=== PATIENT | female | born 1970 | race Caucasian/White ===

== ENCOUNTER → 2024-03-27 15:20 | Outpatient (REF) | payer OTHER, SELFPAY | LOC: HWWDC 15:20 | PROVIDERS: ATTENDING PHYSICIAN Obstetrics & Gynecology; FAMILY PHYSICIAN Family Medicine | DX: Z12.31 Encounter for screening mammogram for malignant neoplasm of breast (principal) | CPT/HCPCS: 77063; 77067 ==

== ENCOUNTER → 2024-05-29 07:12 | Outpatient (REF) | payer OTHER, SELFPAY | LOC: HWRCS 07:12 | PROVIDERS: ATTENDING PHYSICIAN Family Medicine | DX: L93.2 Other local lupus erythematosus (principal); E80.4 Gilbert syndrome; R07.9 Chest pain, unspecified; R53.83 Other fatigue | CPT/HCPCS: 93306 ==

== ENCOUNTER → 2024-06-04 07:20 | Outpatient (REF) | payer OTHER, SELFPAY | LOC: RCS 07:20 | PROVIDERS: ATTENDING PHYSICIAN Family Medicine | DX: M35.00 Sjogren syndrome, unspecified (principal); R07.9 Chest pain, unspecified; R53.83 Other fatigue | CPT/HCPCS: 93017 ==

== ENCOUNTER → 2024-06-25 13:08 | Outpatient (REF) | payer OTHER, SELFPAY | LOC: DHSLP 13:08 | PROVIDERS: ATTENDING PHYSICIAN Family Medicine | DX: G47.33 Obstructive sleep apnea (adult) (pediatric) (principal); R40.0 Somnolence; R06.83 Snoring | CPT/HCPCS: 95800 ==

== ENCOUNTER → 2024-11-16 08:09 | Outpatient (REF) | payer OTHER, SELFPAY | LOC: DHSLP 08:09 | PROVIDERS: ATTENDING PHYSICIAN Internal Medicine Critical Care Medicine; FAMILY PHYSICIAN Family Medicine | DX: G47.19 Other hypersomnia (principal); R06.83 Snoring | CPT/HCPCS: 95810 ==

== ENCOUNTER → 2025-01-04 09:09 | Outpatient (REF) | payer OTHER, SELFPAY | LOC: HWRAD 09:09 | PROVIDERS: ATTENDING PHYSICIAN Internal Medicine Critical Care Medicine; FAMILY PHYSICIAN Family Medicine | DX: R93.89 Abnormal findings on diagnostic imaging of other specified body structures (principal) | CPT/HCPCS: 71046 ==